=== PATIENT | male | born 1955 | race Caucasian/White ===

== ENCOUNTER → 2020-08-24 | Outpatient (CLI) | payer MEDICARE ==
[2020-08-24 10:34] LABS: African American GFR (CKD) >90 (>60 ml/min/1.73 sqM); Blood Urea Nitrogen 20 mg/dL (9-20); Non-African American GFR(CKD) >90 (>60 ml/min/1.73 sqM)
--- NOTE | 2020-08-24 11:40 | CT ---
EXAMINATION TYPE: CT neck chest w con DATE OF EXAM: 08/24/2020 COMPARISON: NONE HISTORY: Lymphadenopathy CT DLP: 637 mGycm. Automated Exposure Control for Dose Reduction was Utilized. TECHNIQUE: CT scan of the neck and thorax are performed following with IV Contrast, patient injected with 100 mL of Isovue 300. FINDINGS: Neck: Airway: Prominence of the and adenoid tonsils in the posterior nasopharynx. Prominence of the palatin e tonsils. Findings contribute to nasopharyngeal and oropharyngeal narrowing. Region of the epiglotti s and vallecula appears within normal limits. Hypopharyngeal airway into proximal trachea is patent. Thyroid gland within normal limits. Parotid/submandibular glands: No gross abnormality seen. Carotid/Vascular Structures: Dominant left vertebral artery incidentally noted Osseous Structures: Anterior fusion plate C3-C4 level with artificial disc material. Sagittal and ant erior fusion plate from C5 through C7 level. There is ossific fusion of the C4 through the C7 vertebr a. There is moderate to severe disc space narrowing C7-T1 level with mild anterior spurring. There is prominent levoconvex scoliosis centered upper thoracic spine. Other: Incidental 2.0 cm posterior thin-walled cyst or cystic lesion axial image 49 presumed dermatol ogic. Suspicious adenopathy is present. There are scattered prominent and greater than 1 cm abnormally enla rged lymph nodes throughout the neck bilaterally. For reference there is 1.5 x 1.4 cm posterior cervi yamileth lymph node left neck at level of the inferior hyoid bone. For reference there is 1.5 x 1.2 cm sub mandibular lymph node anterior to submandibular gland image 48.For reference there is a 1.8 x 1.2 cm lymph node at level of superior hyoid bone posterior to right inferior submandibular gland axial imag e 51. Adenopathy extends above and below vocal cords into the supraclavicular region. Confluent left supraclavicular 2.5 x 1.2 cm adenopathy noted on image 29. Chest: LUNGS: Moderate underlying emphysematous change. Small left pleural effusion. Associated left lung co mpressive atelectasis. Mild to moderate linear scarring and/or atelectasis anteriorly in both lungs. No suspicious nodules or masses. MEDIASTINUM: Prominent lymph nodes throughout the thorax involving bilateral hilar regions and medias tinum. For reference anterior right hilar lymph node measures 2.1 x 1.4 cm image 28. Abnormal 1.2 x 0 .9 cm inferior right mediastinal lymph node axial image 47 just above diaphragm. No cardiomegaly is s een. No pericardial effusion is seen. OTHER: Prominent lymph nodes in the bilateral axilla. Definitive greater than 1 cm lymph node right a xilla. There is 2.5 x 1.9 cm lymph node noted axial image 14. Spleen is only partially imaged but beverley pected enlarged. Abnormal adenopathy in the retroperitoneum surrounding the upper to mid aorta is not ed. For reference there is 1.9 x 1.8 cm lymph node axial image 68 left para-aortic region noted. IMPRESSION: Abnormal adenopathy throughout the neck and thorax, abnormal adenopathy in the visualized upper abdomen. Splenomegaly suspected. Consider underlying neoplasm such as lymphoma.
== END | disposition home or self-care (01) ==
LOC: RADCTMAIN 09:48
PROVIDERS: ATTEND Internal Medicine Hematology & Oncology
DX: R59.0 Localized enlarged lymph nodes (principal); Z88.0 Allergy status to penicillin
CPT/HCPCS: 82565; 84520; 70491; 71260; 36415; Q9967